=== PATIENT | male | born 1965 | race Caucasian/White ===

== ENCOUNTER 2017-07-04 12:33 | Day surgery (SDC) | payer OTHER ==
[2017-07-04] MEDS ORDERED: LACTATED RINGERS 1,000 ML IV ONE ×2 (12:48→15:32)
[2017-07-04] MEDS ORDERED: MIDAZOLAM 2 MG/2 ML VIAL IVP ONE (13:10)
[2017-07-04] MEDS ORDERED: fentaNYL 100 MCG/2 ML VIAL IVP ONE (13:10)
[2017-07-04 15:46] VITALS: BP 134/75
== END 2017-07-04 12:34 | disposition home or self-care (01) ==
LOC: SDS 12:33
PROVIDERS: ATTEND Surgery
PROC: 0DBL8ZX Excision of Transverse Colon, Via Natural or Artificial Opening Endoscopic, Diagnostic (ICD-10-PCS; principal; 2017-07-04 13:45)
DX: D12.3 Benign neoplasm of transverse colon (principal); K57.30 Diverticulosis of large intestine without perforation or abscess without bleeding; K64.8 Other hemorrhoids; K52.89 Other specified noninfective gastroenteritis and colitis; I10 Essential (primary) hypertension; G47.30 Sleep apnea, unspecified; Z87.891 Personal history of nicotine dependence
CPT/HCPCS: 45380; J7120

== ENCOUNTER 2018-09-22 14:49 | Outpatient (CLI) | payer OTHER | END 2018-09-22 14:50 | disposition home or self-care (01) | LOC: SC 14:49 | PROVIDERS: ATTEND Internal Medicine Pulmonary Disease | DX: G47.33 Obstructive sleep apnea (adult) (pediatric) (principal); E66.01 Morbid (severe) obesity due to excess calories; Z68.41 Body mass index [BMI] 40.0-44.9, adult | CPT/HCPCS: 99203; 99212 ==

== ENCOUNTER 2021-02-06 15:37 | Outpatient (CLI) | payer OTHER ==
--- NOTE | 2021-02-06 16:27 | SLEEP CARE CONSULTATION ---
Information from patient questionnaire entered by Ina Howard. I have reviewed and concur with the information entered by Ina Howard. This document represents the service I personally performed and the decisions made by me, Julianne Quan MD, [facility]. History of Present Illness Service Date and Time: 02/06/2021 1537 Previous diagnosis: Extremely Severe, Obstructive Sleep Apnea-Hypopnea Syndrome AHI: 109 (in 2014) Reason for follow up: annual (last seen 09/2018) Equipment type: CPAP Equipment obtained from: Other (none at the moment) Prior sleep studies: Yes Year and Where: 2014 - [facility]; 2003 - [facility] Type of Sleep Study: Polysomnography HPI additional information: HPI: Mr. Brantley was diagnosed to have extremely severe obstructive sleep apnea-hypopnea syndrome and returns today for follow up of CPAP therapy. The patient gets his supplies from [facility]. He wears the CPAP Pro nasal pillows. He uses the device nightly and all through the night. The compliance report shows that he uses the device 179 nights out of the past 180 nights, averaging 7.6 hours a night. The > 4 hour compliance rate for the past 30 days is 98%. He complains of no particular problem with the device such as soreness on the face, dry nose, epistaxis, nasal congestion or headache. He thinks that the pressure of 11 - 16 cmH2O is comfortable. On the CPAP therapy he notices improvement in his sleep quality, and that he wakes up feeling fresher in the morning and more awake/alert during the day. [place] Sleepiness Scale score is 0. The average residual AHI is 0.4; and average air leak is 6.7 L/minute. The 90th percentile pressure is 14.3 cmH2O. CPAP Compliance Data - Data Reviewed with Patient Average duration of nightly device use: 7 hr 34 min Compliance rate %: 98 (180 days) Current pressure setting (cmH2O): 11-15 Average residual AHI: 0.4 Subjective Patient concerns: reports: other (old machine, need supplies) Current pressure setting perceived as: comfortable Initial [place] Sleepiness Scale score: 0 (in 2019) Current [place] Sleepiness Scale score: 0 Allergies and Home Medications Drug allergies reviewed: Yes Home medication list reviewed: Yes Review of Systems Review of systems same as previous: Yes Physical Exam Height: 6 ft 3 in Weight: 340 lb Body Mass Index: 42.5 BMI Classification: Morbidly Obese Impression and Plan IMPRESSION: 1. Obstructive Sleep Apnea-Hypopnea Syndrome, extremely severe, with the patient continuing to do well on nasal CPAP therapy. He has excellent compliance and significant clinical benefits. The current pressure appears effective and comfortable. Overall, he is very satisfied with treatment and plans to continue with it long-term. Because the CPAP is now older than the useful life of 5 years, I will order the patient a new one and make it an autoCPAP set between 10 and 15 cmH2O because his residual AHI is very low on the current setting. PLAN: 1. Continue with autoCPAP set at 10 - 15 cm H2O. 2. Prescription made for a new autoCPAP, heated humidifier, and related supplies. 3. Try to lose weight. 4. Return for follow up after one month of using the CPAP. Counseling Topics: Weight control Prescriptions: Auto CPAP Follow up with Sleep Care in: 1-2 months Visit Type: In Office Time Spent with Patient (minutes): 15 Provider Statement: I spent 100% of the Face to Face Visit with the patient with greater than 50% spent counseling the patient and coordination of care.
== END 2021-02-06 15:38 | disposition home or self-care (01) ==
LOC: SC 15:37
PROVIDERS: ATTEND Internal Medicine Pulmonary Disease
DX: G47.33 Obstructive sleep apnea (adult) (pediatric) (principal); E66.01 Morbid (severe) obesity due to excess calories; Z68.41 Body mass index [BMI] 40.0-44.9, adult
CPT/HCPCS: 99212